=== PATIENT | male | born 1980 | race African-American/Black ===

== ENCOUNTER 2017-05-18 14:29 | Emergency (ER) | payer OTHER ==
[~2017-05-18] VITALS: Ht 182.9 cm; Wt 83.9 kg
[2017-05-18] MEDS ORDERED: ONDA4TAB10 SL (15:46)
--- NOTE | 2017-05-18 15:46 | PHYS DOC ---
Past History Past Medical History: No Pertinent History Past Surgical History: Other Alcohol Use: Occasionally Drug Use: None Adult General Chief Complaint Chief Complaint: FLU SYMPTOM HPI HPI Patient is a 36 year old male who presents with diarrhea. The patient reports 3 day history of loose stools, 2 episodes today. Nasal congestion several days ago, absent at this time. He denies fevers/chills, nausea, vomiting, hematochezia/melena, dysuria/hematuria. Denies recent travel or antibiotics. Previously healthy. Review of Systems Review of Systems Constitutional: Denies fever or chills Eyes: Denies change in visual acuity HENT: Reports nasal congestion , denies sore throat Respiratory: Denies cough or shortness of breath Cardiovascular: Denies chest pain GI: Reports diarrhea. Denies abdominal pain, nausea, vomiting, bloody stools : Denies dysuria or hematuria Musculoskeletal: Denies back pain or joint pain Integument: Denies rash or skin lesions Neurologic: Denies headache, focal weakness or sensory changes All other systems were reviewed and found to be within normal limits, except as documented in this note. Allergies Allergies Allergies Coded Allergies Type Severity Reaction Last Updated Verified No Known Drug Allergies 11/13/15 No Physical Exam Physical Exam Constitutional: Well developed, well nourished, no acute distress, non-toxic appearance. HENT: Normocephalic, atraumatic, bilateral external ears normal, oropharynx moist, nose normal. Eyes: conjunctiva normal, no discharge. Cardiovascular: RRR, no murmurs, no edema. Lungs & Thorax: LCTAB, no wheezing, no respiratory distress. Abdomen: soft, no focal tenderness with palpation, no rebound/guarding, no masses or pulsatile masses, nondistended. Skin: Warm, dry, no erythema, no rash. Back: No CVA tenderness. Extremities: No tenderness, no edema. Neurologic: Alert and oriented X 3, no focal deficits noted. Psychologic: Affect normal, judgement normal, mood normal. Current Patient Data Vital Signs Vital Signs Date Time Temp Pulse Resp B/P (MAP) Pulse Ox O2 Delivery O2 Flow Rate FiO2 05/18/17 14:49 98.2 96 20 100 Room Air EKG EKG [] Radiology/Procedures Radiology/Procedures [] Course & Med Decision Making Course & Med Decision Making Pertinent Labs and Imaging studies reviewed. (See chart for details) The patient presents with diarrhea. He is well appearing, afebrile, stable vitals, not clinically dehydrated, abdomen nontender. Recommend rest, hydration with sips of clear liquids such as gatorade, zofran for nausea, try immodium for diarrhea. Follow up with primary care in 2-3 days if not improving. Come back for high fever, severe pain, uncontrolled vomiting, any otherwise worsening condition. Discharged home in stable condition. [] Dragon Disclaimer Dragon Disclaimer This electronic medical record was generated, in whole or in part, using a voice recognition dictation system. Departure Departure: Impression: Primary Impression: Diarrhea Disposition: HOME, SELF-CARE Condition: STABLE Referrals: PCP,NO (PCP) Patient Instructions: Diarrhea, [id number] Additional Instructions: You were seen in the emergency department today for diarrhea. Your vitals are stable. Please rest, drink clear liquids to stay hydrated, try Gatorade. Take Tylenol or ibuprofen as needed for pain or fever. Use Zofran for nausea. By Imodium and take as directed on the package for diarrhea. Follow-up with primary care physician if not improving in 2-3 days. Return to the emergency department for high fever, severe abdominal pain, uncontrolled vomiting, any otherwise worsening condition. Scripts Ondansetron (ZOFRAN ODT) 4 Mg Tab.rapdis 1 TAB SL Q8HRS, #10 TAB Prov: CHARLES BRUNO MD 05/18/17 CHARLES BRUNO MD May 18, 2017 15:46
[2017-05-18 16:00] VITALS: BP 127/89
== END 2017-05-18 16:01 | disposition home or self-care (01) ==
LOC: ER 14:29
DX: R19.7 Diarrhea, unspecified (principal); R09.81 Nasal congestion
CPT/HCPCS: 99283